=== PATIENT | male | born 1945 | race Caucasian/White ===

== ENCOUNTER 2016-12-09 17:04 | Observation (INO) | payer BC ==
[~2016-12-09] VITALS: Ht 175.3 cm; Wt 84.4 kg
[~2016-12-09 17:04] MED LIST: ASPIR-LOW81 MG PO; BUTALB-APAP-CA1 EACH PO; DELTASONE20 M1 PO; EXTRA STRENGTH500 M1 PO; MEN'S MULTI-VI1 EACH PO; PRAVASTATIN SOD10 MG PO
[2016-12-09 19:39] LABS: HEMATOCRIT 44.3 % (38.0-50.0); MCH 25.6 PG (29.0-34.0); MCHC 31.2 G/DL (30.0-36.0); MEAN PLAT.VOLUME 10.3 uM^3 (9.0-12.4); PLATELET COUNT 246 K/uL (156-360); RBC DIS.WIDTH-CV 14.7 % (11.8-14.6); WHITE BLOOD COUNT 6.5 K/uL (4.1-10.2)
[2016-12-09 19:56] LABS: CHLORIDE 106 mEq/L (99-109); POTASSIUM 4.7 mEq/L (3.7-5.4); SODIUM 139 mEq/L (136-147)
[2016-12-09 19:58] LABS: GLUCOSE 134 mg/dL (70-99)
[2016-12-09 19:59] LABS: ANION GAP 10 MEQ/L (2-14)
[2016-12-09 20:02] LABS: GFR ESTIMATE (CALCULATED) > 59 mL/min/
[2016-12-09 20:03] LABS: UREA NITROGEN (BUN) 18 mg/dL (9-23)
[2016-12-09] MEDS ORDERED: VITAMIN D2000 UNI1 PO (20:24)
[2016-12-10 00:18] VITALS: BP 160/84
[2016-12-10 04:12] VITALS: BP 118/71
[2016-12-10 05:54] LABS: HEMATOCRIT 38.9 % (38.0-50.0); MCH 26.2 PG (29.0-34.0); MCHC 31.6 G/DL (30.0-36.0); MCV 82.8 FL (86-99); MEAN PLAT.VOLUME 10.1 uM^3 (9.0-12.4); PLATELET COUNT 195 K/uL (156-360); RBC DIS.WIDTH-CV 14.6 % (11.8-14.6); RBC DIS.WIDTH-SD 44.5 % (39-53); WHITE BLOOD COUNT 6.6 K/uL (4.1-10.2)
[2016-12-10 06:24] LABS: ANION GAP 6 MEQ/L (2-14); CHLORIDE 109 MEQ/L (99-109); GFR ESTIMATE (CALCULATED) > 59 mL/min/; POTASSIUM 4.1 MEQ/L (3.7-5.4); SAMPLE HEMOLYSIS CHECK 0; SAMPLE ICTERIC CHECK 0; SAMPLE LIPEMIA CHECK 0; SODIUM 141 MEQ/L (136-147); UREA NITROGEN (BUN) 14 mg/dL (9-23)
[2016-12-10 06:31] LABS: GLUCOSE 90 mg/dL (70-99)
[2016-12-10 07:48] VITALS: BP 111/67
[2016-12-10 07:55] VITALS: BP 123/72
[2016-12-10 07:56] VITALS: BP 147/79
[2016-12-10 11:00] VITALS: BP 135/71
[2016-12-10] MEDS ORDERED: ANTIVERT25 MG PO (11:22)
== END 2016-12-10 12:04 | disposition home or self-care (01) ==
LOC: EME 17:04 → 5WEST 21:59 → EDOF 21:59 → 5WEST 12-10 00:02
PROVIDERS: Hospitalist
DX: R42 Dizziness and giddiness (principal); E78.5 Hyperlipidemia, unspecified; R11.0 Nausea; R20.0 Anesthesia of skin; Z82.3 Family history of stroke; Z83.3 Family history of diabetes mellitus; Z82.49 Family history of ischemic heart disease and other diseases of the circulatory system; Z87.891 Personal history of nicotine dependence; Z88.0 Allergy status to penicillin; Z88.1 Allergy status to other antibiotic agents; Z91.040 Latex allergy status
CPT/HCPCS: 70450; 71020; 80048; 85027; 93005; 99281; 99285; G0378; J1650; J7030

== ENCOUNTER 2017-03-21 11:20 | Emergency (ER) | payer BC ==
[~2017-03-21] VITALS: Ht 175.3 cm; Wt 88.3 kg
[~2017-03-21 11:20] MED LIST changes: +ANTIVERT25 MG PO; +VITAMIN D2000 UNI1 PO
[2017-03-21 15:04] VITALS: BP 145/83
== END 2017-03-21 15:08 | disposition home or self-care (01) ==
LOC: EME 11:20
DX: H05.20 Unspecified exophthalmos (principal); H53.8 Other visual disturbances; Z91.040 Latex allergy status; Z87.891 Personal history of nicotine dependence
CPT/HCPCS: 84443; 99281; 99284